=== PATIENT | female | born 2005 | race Caucasian/White ===

== ENCOUNTER 2023-01-06 11:44 | Emergency (ER) | payer BC ==
[2023-01-06 11:55] VITALS: BP 108/73; PULSE 95; RESP 16; TEMP 98.8; BMI 20.2
== END 2023-01-06 12:51 | disposition home or self-care (01) ==
LOC: JERFT 11:44
DX: N63.0 Unspecified lump in unspecified breast (principal); N64.4 Mastodynia
CPT/HCPCS: 99283-25; 99284-25

== ENCOUNTER 2023-07-22 04:32 | Day surgery (SDC) | payer BC ==
[2023-07-16 15:10] VITALS: BMI 21.1
[~2023-07-22 04:32] MED LIST: LACTATED RINGERS SOLUTION 1,000 ML IV SCH; ONDANSETRON 4 MG/2 ML VIAL IVPUSH PRN; oxyCODONE HCL 5 MG TABLET PO PRN
[2023-07-22] MEDS ORDERED: SEVOFLURANE 250 ML BTL ONE (08:59)
[2023-07-22] MEDS ORDERED: ACETAMINOPHEN INJECTION 100 ML IVPB ONE (08:59)
[2023-07-22] MEDS ORDERED: DEXAMETHASONE SOD PHOSPHATE 4 MG/1 ML VIAL ONE (10:06)
[2023-07-22] MEDS ORDERED: ONDANSETRON 4 MG/2 ML VIAL ONE (10:06)
[2023-07-22] MEDS ORDERED: LIDOCAINE HCL/PF 2% SDV 5ML VIAL ONE (10:07)
[2023-07-22] MEDS ORDERED: PROPOFOL 40 ML ONE (10:07)
[2023-07-22] MEDS ORDERED: FENTANYL CITRATE/PF 50 MCG/ML VIAL ONE (10:08)
[2023-07-22] MEDS ORDERED: MIDAZOLAM HCL 2 MG/2 ML SINGLE DOSE VIAL ONE (10:10)
[2023-07-22] MEDS: LIDOCAINE HCL 1%, 10 MG/ML (50 mL VIAL) SQ ONE (10:48)
[2023-07-22] MEDS ORDERED: LIDOCAINE HCL 1%, 10 MG/ML (20ML VIAL) ONE (11:31)
[2023-07-22 14:49] VITALS: RESP 18
[2023-07-22 14:50] VITALS: BP 110/71; PULSE 72; TEMP 97.8
== END 2023-07-22 12:45 | disposition home or self-care (01) ==
LOC: JASU-SURG 04:32
PROVIDERS: ATTEND Surgery
PROC: 0HBU0ZX Excision of Left Breast, Open Approach, Diagnostic (ICD-10-PCS; principal; 2023-07-22 10:30)
DX: D24.2 Benign neoplasm of left breast (principal)
CPT/HCPCS: 81025; 88307-TC; 94760; J0131

== ENCOUNTER 2023-07-22 18:39 | Emergency (ER) | payer BC ==
[2023-07-22 18:51] VITALS: BP 107/72; TEMP 98.6; BMI 20.3
[2023-07-22 19:22] VITALS: PULSE 83; RESP 18
== END 2023-07-22 19:44 | disposition home or self-care (01) ==
LOC: JER 18:39
DX: L76.22 Postprocedural hemorrhage of skin and subcutaneous tissue following other procedure (principal)
CPT/HCPCS: 99282-25

== ENCOUNTER 2023-08-16 13:04 | Emergency (ER) | payer BC ==
[2023-08-16 13:12] VITALS: BP 118/77; PULSE 89; RESP 20; TEMP 98.3; BMI 21.7
[2023-08-16] MEDS ORDERED: KETOROLAC TROMETHAMINE 30 MG/1 ML VIAL ONE (14:07)
[2023-08-16] MEDS: KETOROLAC TROMETHAMINE 30 MG/1 ML VIAL IM ONE (14:13)
== END 2023-08-16 14:27 | disposition home or self-care (01) ==
LOC: JERFT 13:04
PROC: 3E0233Z Introduction of Anti-inflammatory into Muscle, Percutaneous Approach (ICD-10-PCS; principal; 2023-08-16)
DX: H92.03 Otalgia, bilateral (principal); J02.9 Acute pharyngitis, unspecified; R05.9 Cough, unspecified; R09.89 Other specified symptoms and signs involving the circulatory and respiratory systems
CPT/HCPCS: 99284-25